=== PATIENT | female | born 1975 | race Caucasian/White ===

== ENCOUNTER 2023-05-11 06:22 | Day surgery (SDC) | payer BC ==
[2023-05-11] MEDS ORDERED: Lactated Ringers 1,000 ML IV SCH (07:15)
[2023-05-11] MEDS ORDERED: Propofol 200 MG/20 ML SDV ONE ×3 (07:25→08:18)
[2023-05-11] MEDS ORDERED: Midazolam 1 MG/ML 2 ML SDV ONE (07:25)
== END 2023-05-11 09:44 | disposition home or self-care (01) ==
LOC: JP.SDS 06:22
PROVIDERS: ATTEND Student in an Organized Health Care Education/Training Program
DX: K29.50 Unspecified chronic gastritis without bleeding (principal); K31.7 Polyp of stomach and duodenum; K21.9 Gastro-esophageal reflux disease without esophagitis; K57.30 Diverticulosis of large intestine without perforation or abscess without bleeding; K64.8 Other hemorrhoids
CPT/HCPCS: 43239; 45378; 88305; J2250; J2704; J7120